=== PATIENT | female | born 1995 | race Caucasian/White ===

== ENCOUNTER 2017-03-17 18:14 | Emergency (ER) | payer OTHER ==
[~2017-03-17] VITALS: Ht 170.2 cm; Wt 59.1 kg
[2017-03-17 18:20] VITALS: BP 104/74; PULSE 81; RESP 18; O2SAT 99
--- NOTE | 2017-03-17 19:15 | ED.REPORT ---
HPI-GI Bleed Date of Service Mar 17, 2017 ED Provider: Tae Parks MD Pt is a 22 y/o female with a history of anxiety who presents to the ED c/o lower abdominal cramping onset two weeks ago. She thought the cramping was from menstruation, but denies getting her period. Pt describes her pain as waxing and waning, and rates the severity as 3/10 with the worst as 6/10. Additional symptoms include rectal bleeding, bloody stool, hematuria, melena x1, bowel urgency, and nasal congestion from a recent cold. She denies fever, cough, rash , SOB, chest pain, or any other symptoms. She reports getting treated for a stomach ulcer when she was 18, and thought she had another ulcer this year, but followed the diet they gave her before and it went away. Pt denies eating any unusual food recently. She took 50 mg of Zoloft for her anxiety 4 years ago, and would like to start prescription again. Prescription was filled in ED. Nursing Notes Stated Complaint: LOWER ABDOMINAL PAIN,RECTAL BLEEDING Chief Complaint: Female Abdominal Pain Nursing Notes Reviewed: Yes (Rabbit TV not reconciled) Allergies: Coded Allergies: Penicillins (Verified Allergy, Severe, 03/17/17) Sulfa (Sulfonamide Antibiotics) (Verified Allergy, Intermediate, 03/17/17) TAPE (Verified Allergy, Intermediate, 03/17/17) cefprozil (Verified Allergy, Intermediate, 03/17/17) codeine (Verified Allergy, Intermediate, 03/17/17) Scheduled Ciprofloxacin (Cipro) 500 Mg Tablet 500 MG PO BID Metronidazole (Metronidazole) 500 Mg Tablet 500 MG PO TID Sertraline HCl (Zoloft) 20 Mg/1 Ml Oral.conc 50 MG PO DAILY Scheduled PRN Hydrocodone-Acetaminophen 5-325 mg (Hydrocodone-Acetaminophen 5-325 mg) 1 Each Tablet 1-2 TABLET PO Q4H PRN PRN For Pain General Time Seen by Provider: 19:10 Chief Complaint Chief Complaint: Abdominal pain (cramping) Hx Obtained From: Patient Arrived By: Walk-in Onset Occurred: More than a week ago... (2 weeks) Symptom Duration: Waxes and wanes Location: : Diffuse Quality: Painful Severity: Current: Pain level 3 out of 10 Severity: Maximum: Pain level 6 out of 10 Recent Healthcare: No recent doctor visit, No recent hospitalization Similar Sx Previous: No Past Medical History Past Medical History Anxiety Stomach ulcer at 18 years old Past Surgical History Reports: Appendectomy Smoking History Unknown if Ever Smoker Social History Alcohol Use: "Social" Drug Use: Denies drug use Other Social History: Good social support Ambulatory Status Independent Review of Systems Rectal bleeding Bowel urgency Constitutional: Denies: Fever Ears / Nose / Throat: Reports: Nasal congestion (from recent cold) Respiratory: Denies: Non-productive cough, Prod cough, clear, Shortness of breath Cardiovascular: Denies: Chest pain GI: Reports: Abdominal pain (cramping ), Bloody/tarry stool, Melena (x1) Skin: Denies Rash Complete sys rev & neg: except as marked. Female: Reports: Hematuria Physical Exam Initial Vital Signs Vital Signs (First) Date Time Temp Pulse Resp B/P Pulse Ox O2 Delivery O2 Flow Rate FiO2 03/17/17 18:20 37.0 81 18 104/74 99 Room Air Initial VS: Reviewed, Vital signs normal Head / Eyes: Atraumatic, Normocephalic Neck: Supple, Full range of motion Extremities: Vascular intact, Neuro intact, No swelling, No tenderness Skin: Warm, Dry, No cyanosis Neurologic: Alert, Oriented, Nonfocal Psychiatric: Mood/affect normal, Behavior normal, Normal thought content General/Constitutional: Awake, Alert, Not toxic appearing Behavior: Positive: Anxious Not tachycardic Respiratory / Chest: Atraumatic, Breath sounds NL, Breath sounds = bilat, No respiratory distress Cardiovascular: Heart rate NL, Regular rhythm, Heart sounds NL Abdomen: Soft, Non-tender Rectal exam: Deferred Interpretation & Diagnostics Lab Results Interpretation Result Diagram: 03/17/17194003/17/171940 Test 03/17/17 19:24 03/17/17 19:41 Urine Color Yellow (YELLOW) Urine Appearance Hazy (CLEAR,HAZY) Urine pH 6.0 (5.0-8.0) Urine Specific [place] 1.025 (1.003-1.035) Urine Protein Negativemg/dL (NEG,TRACE) Urine Glucose (UA) Negativemg/dL (NEGATIVE) Urine Ketones Negativemg/dL (NEGATIVE) Urine Occult Blood Moderate (NEGATIVE) Urine Nitrite Negative (NEGATIVE) Urine Bilirubin Negative (NEGATIVE) Urine Urobilinogen 1.0mg/dL (NORMAL) Urine Leukocyte Esterase Negative (NEGATIVE) Urine RBC 3-10/hpf (0-2) Urine WBC 0-5/hpf (0-5) Urine Epithelial Cells Moderate/hpf (NONE-MOD) Urine Crystals None seen (NONE SEEN) Urine Bacteria Few/hpf (NONE-FEW) Urine Hyaline Casts None/lpf (NONE) Urine Granular Casts None seen (NONE SEEN) Urine Waxy Casts None seen (NONE SEEN) Urine Red Blood Cell Casts None seen (NONE SEEN) Urine White Blood Cell Casts None seen (NONE SEEN) Urine Mucus None seen (None Seen) Urine Trichomonas None seen (NONE SEEN) Urine Yeast None (NONE SEEN) Urinalysis Comment None Urine Culture Reflexed Not indicated White Blood Count 7.0th/mm3 (3.8-10.1) Red Blood Count 4.93mil/mm3 (3.90-5.20) Hemoglobin 15.4g/dL (12.0-15.6) Hematocrit 44.7% (35.0-46.0) Mean Corpuscular Volume 90.7fL (81-100) Mean Corpuscular Hemoglobin 31.2pg (27.0-35.0) Mean Corpuscular Hemoglobin Concent 34.5% (32.0-37.0) Red Cell Distribution Width 11.9% (12.3-15.4) Platelet Count 242bil/L (150-400) Neutrophils (%) (Auto) 59.4% (40-74) Lymphocytes (%) (Auto) 23.5% (14-46) Monocytes (%) (Auto) 13.9% (4-12) Eosinophils (%) (Auto) 2.7% (0-5) Basophils (%) (Auto) 0.4% (0-3) Prothrombin Time 11.1sec (8.1-12.5) Prothromb Time International Ratio 1.04ratio Sodium Level 139mEq/L (134-144) Potassium Level 3.8mEq/L (3.5-5.2) Chloride Level 103mEq/L (97-108) Carbon Dioxide Level 22mmol/L (18-29) Blood Urea Nitrogen 7mg/dL (6-20) Creatinine 0.59mg/dL (0.57-1.00) Estimat Glomerular Filtration Rate 184mL/min (>59) Glucose Level 91mg/dL (60-99) Calcium Level 9.0mg/dL (8.5-10.1) Total Bilirubin 0.4mg/dL (0.0-1.2) Aspartate Amino Transf (AST/SGOT) 16U/L (0-50) Alanine Aminotransferase (ALT/SGPT) 11U/L (0-32) Alkaline Phosphatase 72U/L (25-150) Total Protein 7.3g/dL (6.4-8.4) Albumin 4.4g/dL (3.4-5.0) Human Chorionic Gonadotropin, Qual Negative (Negative) Hold Esquivel Top Tube Received (Received) Lab Results Interpretation: CBC normal limits and CMP normal negative CT Abd / Pelvis Interpretation IMPRESSION: 1. Colitis of the rectosigmoid colon likely secondary to diverticulitis. No diverticular abscess or macroscopic free air. Dictated by: Ben Melo M.D. on 03/17/2017 at 21:11 Approved by: Ben Melo M.D. on 03/17/2017 at 21:18 Study type: Abdominal CT IV contrast, Abdom CT oral contrast Interpretation / Wet Read by: Interpret - Radiologist Re-Eval/Medical Decision Med Decision/Clinical Course This is a 22-year-old female presents with 2 weeks of cramping and left lower quadrant pain with intermittent rectal bleeding, with symptoms worsening today. She reports possible fever, but not definite. Denies marine dysuria. He has no prior history of similar symptoms. She is not aware of any family history of inflammatory bowel disease or prior similar process. She denies recent antibiotic exposure, travel history, suspicious food ingestions, and has not been to the [facility] with his recent enteroinvasive outbreak. The patient is in no distress, but is certainly anxious. Abdomen is without findings of an acute surgical abdomen but there is mild tenderness. There is no guarding or rebound. Blood work is normal, CT is read as positive for diverticulitis. The patient is started on Cipro and Flagyl, she is concerned about allergies-and reports she tolerates azithromycin, but is artery allergic to penicillin, sulfa, and cephalosporin so they are not very good alternatives. Plan is discharge on on a two-week course of an antibiotic. Given her young age , I recommended follow-up with gastroenterology provided referral information. She is received a small amount hydrocodone, and should like a refill of her Zoloft has been working at a PCP appointment but is not several more weeks-So I have gone ahead and written a refill of her 50 mg once a day dose. Routine and return precautions reviewed Source of Hx: Old records Re-Evaluation/Progress #1: Time of Eval: 20:08 Re-Evaluation/Progress Note: Pt rechecked. Asked pt if she has been to the [facility] b/c recent outbreak of e.coli in [facility] attendees. She denies attendance. Re-Evaluation/Progress #2: Time of Eval: 21:25 Re-Evaluation/Progress Note: Pt rechecked. Discussed CT results. Discussed plan for discharge. Patient understands and agrees with plan. F/U instructions and RTER warnings given. All questions addressed at this time. Differential Diagnosis: Positive: Rectal bleeding, Negative: Anal fissures, Angiodysplasia, Esophageal varices, Esophagitis, Foreign body intestine, Foreign body rectum, Gastroenteritis Counseled Regarding: Diagnosis, Lab results, Need for follow-up, When/why to return to ED Discharge & Departure Impression: Primary Impression: Diverticulitis Diverticulitis site: small and large intestine Diverticulitis bleeding: with bleeding Diverticulitis complication: without perforation or abscess Qualified Code: K57.53 - Diverticulitis of both small and large intestine without perforation or abscess with bleeding Disposition: Home Discharge Condition All VS Reviewed: Yes Condition: Stable Additional Instructions: 1. Your blood tests were normal, however your CT scan revealed her symptoms are from a condition called diverticulitis. This is an infection and inflammation of the part of the lower intestine. 2. Although, condition, your very young for this first episode-and as a result I do recommend he follow up with a ship keeper. There is no pollack - call Dr. Dia's office this week to schedule an appointment in a few weeks. 3. Take the antibiotics ciprofloxacin 500mg twice a day for 14 days AND metronidazole 500mg three times a day for 14 days (Do not drink any alcohol while taking this antibiotic or results in nausea) 4. Symptoms are expected to start to improve in a few days after beginning antibiotics. 5. Return if new or worsening symptoms. 6. If needed for severe cramping you can take hydrocodone/APAP 5/325 1-2 tabs up to every 6 hours. Note this is a medication it does contain a narcotic and causes some drowsiness. No driving for at least 4-6 hours after taking. Referrals: NOPCP (PCP) Lesa Olivares MD Scribe Attestation Portions of this note were transcribed by Angela Meneses. I, Dr. Parks, personally performed the history, physical exam and medical decision-making; I reviewed and confirmed the accuracy of the information in the transcribed note. copies to: Lesa Olivares MD, Matthew F MD Mar 17, 2017 19:15 Angela Meneses Mar 17, 2017 19:34
[2017-03-17] MEDS ORDERED: Iohexol 300 mg/mL 30 mL Inj PO ONE (19:35)
[2017-03-17] MEDS ORDERED: SERT20OR PO (19:41)
[2017-03-17 19:47] LABS: APPEARANCE,URINE HAZY (CLEAR,HAZY); COLOR,URINE YELLOW (YELLOW)
[2017-03-17 19:48] LABS: OCCULT BLOOD,URINE MODERATE (NEGATIVE)
[2017-03-17 20:00] LABS: BASOPHILS % (AUTO) 0.4 % (0-3); EOSINOPHILS % (AUTO) 2.7 % (0-5); MONOCYTES % (AUTO) 13.9 % (4-12); Mean Corpuscular Hemoglobin 31.2 pg (27.0-35.0); Mean Corpuscular Volume 90.7 fL (81-100); NEUTROPHILS % (AUTO) 59.4 % (40-74); Platelet Count 242 bil/L (150-400)
[2017-03-17 20:12] VITALS: BP 111/67; PULSE 73; O2SAT 100
[2017-03-17 20:13] VITALS: BP 116/61; PULSE 69; O2SAT 100
[2017-03-17 20:14] VITALS: BP 112/73; PULSE 77; O2SAT 100
[2017-03-17 20:17] LABS: INR 1.04 ratio
--- NOTE | 2017-03-17 21:19 | DRSVH ---
PROCEDURE: CT ABDOMEN AND PELVIS WITH CONTRAST ([id number]) INDICATIONS: Increasing abdominal pain for 2 weeks with bloody stools. TECHNIQUE: After the administration of oral and intravenous contrast, 5 mm thick sections acquired from the diap hragms to the symphysis. 5 mm thick coronal and sagittal reformats were performed. For radiation do se reduction, the following was used: automated exposure control, adjustment of mA and/or kV accordi ng to patient size. COMPARISON: None. FINDINGS: Image quality: Excellent. ABDOMEN: Lung bases: Lung bases are clear. Heart size is normal. Solid organs: Liver and spleen are normal in size and enhancement. Gallbladder appears within elli l limits without calcified gallstones. Biliary system is non-dilated. Pancreas enhances normally. No adrenal nodules. Kidneys are normal in size and enhancement, without hydronephrosis. Peritoneum and bowel: Stomach and small bowel loops are normal in caliber and wall thickness. The a ppendix is not discretely identified and is likely surgically absent. No pericecal inflammatory beyer ges to suggest appendicitis. Colonic diverticulosis is present. There is segmental wall thickening in the rectosigmoid colon with mucosal enhancement, pericolonic fat stranding, and a small amount of fluid. Findings are consistent with a mild colitis, likely related to diverticulitis. No discrete d iverticular abscess or macroscopic free air identified. Nodes and vessels: No retroperitoneal or mesenteric adenopathy. Aorta and inferior vena cava are no rmal in caliber. Miscellaneous: No ventral hernias. PELVIS: Genitourinary: There is wall thickening and fat stranding around the cervix likely secondary to infl ammatory changes in the colon. The uterus and ovaries appear within normal size limits. Bladder wal l thickness is normal. Miscellaneous: No inguinal hernias or adenopathy. Bones: No suspicious bony lesions. No vertebral body compression fractures. IMPRESSION: 1. Colitis of the rectosigmoid colon likely secondary to diverticulitis. No diverticular abscess or macroscopic free air. Dictated by: Ben Melo M.D. on 03/17/2017 at 21:11 Approved by: Ben Melo M.D. on 03/17/2017 at 21:18
[2017-03-17] MEDS ORDERED: metroNIDAZOLE Inj 500 MG in IV Premix 1 EACH IV ONE (21:25)
[2017-03-17] MEDS ORDERED: _HYDROcodone/APAP 5-325 mg Tablet PO PRN (21:35)
[2017-03-17] MEDS ORDERED: METR500T19 PO (21:37)
[2017-03-17] MEDS ORDERED: HYDR-4003 PO (21:37)
[2017-03-17] MEDS ORDERED: CIPR-231 PO (21:37)
[2017-03-17 22:19] VITALS: BP 114/62; PULSE 87; RESP 20; O2SAT 100
== END 2017-03-17 22:20 | disposition home or self-care (01) ==
LOC: SED 18:14
DX: K57.53 Diverticulitis of both small and large intestine without perforation or abscess with bleeding (principal); F41.9 Anxiety disorder, unspecified; Z88.0 Allergy status to penicillin; Z88.2 Allergy status to sulfonamides; Z88.5 Allergy status to narcotic agent; Z88.8 Allergy status to other drugs, medicaments and biological substances; Z91.048 Other nonmedicinal substance allergy status
CPT/HCPCS: 36415; 74177; 80053; 81000; 81025; 84703; 85025; 85610; 96365; 99285; J3490; Q9967

== ENCOUNTER 2017-03-21 22:12 | Emergency (ER) | payer OTHER ==
[~2017-03-21] VITALS: Ht 170.2 cm; Wt 59.0 kg
[~2017-03-21 22:12] MED LIST: CIPR-231 PO; HYDR-4003 PO; METR500T19 PO; SERT20OR PO
[2017-03-21 22:15] VITALS: BP 113/77; PULSE 79; RESP 18; O2SAT 99
--- NOTE | 2017-03-21 22:25 | ED.REPORT ---
HPI-General Illness Date of Service Mar 21, 2017 ED Provider: Rogelio Wooten MD A 22 year old female with a history of anxiety, appendectomy and recently diagnosed diverticulitis presents to the ED complaining of vomiting. The pt was seen in the ED on 03/17/2017 and diagnosed with diverticulitis. She was prescribed pain medication and antibiotics but has experienced increasing abdominal pain, nausea, vomiting and diarrhea since. She also reports hematochezia, but states that it is significantly less than when she was seen previously. The pt is concerned because she vomited one hour after taking her antibiotics today. She is currently on her menstrual period. Nursing Notes Stated Complaint: NAUSEA,DIZZINESS Chief Complaint: Female Abdominal Pain Nursing Notes Reviewed: Yes Allergies: Coded Allergies: Penicillins (Verified Allergy, Severe, 03/17/17) Sulfa (Sulfonamide Antibiotics) (Verified Allergy, Intermediate, 03/17/17) TAPE (Verified Allergy, Intermediate, 03/17/17) cefprozil (Verified Allergy, Intermediate, 03/17/17) codeine (Verified Allergy, Intermediate, 03/17/17) Scheduled Ciprofloxacin (Cipro) 500 Mg Tablet 500 MG PO BID Famotidine (Pepcid) 20 Mg Tablet 20 MG PO BID Metronidazole (Metronidazole) 500 Mg Tablet 500 MG PO TID Sertraline HCl (Zoloft) 20 Mg/1 Ml Oral.conc 50 MG PO DAILY Sertraline HCl (Sertraline) 50 Mg Tablet 50 MG PO DAILY Scheduled PRN Hydrocodone-Acetaminophen 5-325 mg (Hydrocodone-Acetaminophen 5-325 mg) 1 Each Tablet 1-2 TABLET PO Q4H PRN PRN For Pain Ibuprofen (Ibuprofen) 400 Mg Tablet 400 MG PO QID PRN PRN For Pain Ondansetron ODT (Ondansetron ODT) 8 Mg Tab.rapdis 8 MG PO QID PRN PRN For Nausea General Time Seen by : 22:24 Chief Complaint Vomiting Hx Obtained From: Patient Arrived By: Walk-in Sudden in Onset?: No Onset Occurred: 4 days ago Symptom Duration: Since onset Recent Healthcare: Recent doctor visit Similar Sx Previous: Yes Past Medical History Past Medical History Anxiety Stomach ulcer at 18 years old Diverticulitis Past Surgical History Reports: Appendectomy Smoking History Unknown if Ever Smoker Social History Alcohol Use: "Social" Drug Use: Denies drug use Other Social History: Good social support Ambulatory Status Independent Review of Systems Full Review of Systems Respiratory: Denies: Non-productive cough, Shortness of breath Cardiovascular: Denies: Chest pain GI: Reports: Abdominal pain, Diarrhea, Hematochezia, Nausea, Vomiting Musculoskeletal: Denies: Back pain, Neck pain Skin: Denies Rash Complete sys rev & neg: except as marked. Physical Exam Vital Signs Vital Signs Date Time Temp Pulse Resp B/P Pulse Ox O2 Delivery O2 Flow Rate FiO2 03/22/17 00:37 60 18 100/66 100 03/21/17 22:15 36.7 79 18 113/77 99 Room Air Initial VS: Reviewed General/Constitutional: Awake, Alert anicteric Head / Eyes: Atraumatic, Normocephalic, PERRL, EOMI ENT: Atraumatic, Airway patent Mouth: Positive: Mucous membranes dry Neck: Atraumatic, Supple, Full range of motion Respiratory / Chest: Atraumatic, Breath sounds NL, Breath sounds = bilat, No respiratory distress Cardiovascular: Heart rate NL, Regular rhythm, Heart sounds NL Abdomen: Atraumatic, Soft minimal tenderness Back: Atraumatic, Full range of motion Upper Extremities Upper Extremity / MS: Atraumatic, Full range of motion Lower Extremity / Pelvis / MS: Atraumatic, Full range of motion Skin: Atraumatic, Color NL, No rash, Warm, Dry Neurologic: Oriented X3, Speech NL, No motor deficits, No sensory deficits Psychiatric: Affect NL, Mood NL Interpretation & Diagnostics Lab Results Interpretation Result Diagram: 03/21/17 2250 03/21/17 2329 Test 03/21/17 22:50 03/21/17 23:29 White Blood Count 8.0th/mm3 (3.8-10.1) Red Blood Count 5.45mil/mm3 (3.90-5.20) Hemoglobin 16.8g/dL (12.0-15.6) Hematocrit 49.1% (35.0-46.0) Mean Corpuscular Volume 90.1fL (81-100) Mean Corpuscular Hemoglobin 30.8pg (27.0-35.0) Mean Corpuscular Hemoglobin Concent 34.2% (32.0-37.0) Red Cell Distribution Width 11.8% (12.3-15.4) Platelet Count 315bil/L (150-400) Neutrophils (%) (Auto) 72.5% (40-74) Lymphocytes (%) (Auto) 18.1% (14-46) Monocytes (%) (Auto) 7.9% (4-12) Eosinophils (%) (Auto) 0.5% (0-5) Basophils (%) (Auto) 0.6% (0-3) Urine Color [place] (YELLOW) Urine Appearance Hazy (CLEAR,HAZY) Urine pH 6.0 (5.0-8.0) Urine Specific [place] 1.035 (1.003-1.035) Urine Protein Tracemg/dL (NEG,TRACE) Urine Glucose (UA) Negativemg/dL (NEGATIVE) Urine Ketones >80mg/dL (NEGATIVE) Urine Occult Blood Trace (NEGATIVE) Urine Nitrite Positive (NEGATIVE) Urine Bilirubin Negative (NEGATIVE) Urine Ictotest Negative (Negative) Urine Urobilinogen 1.0mg/dL (NORMAL) Urine Leukocyte Esterase Trace (NEGATIVE) Urine RBC 0-2/hpf (0-2) Urine WBC 6-10/hpf (0-5) Urine Epithelial Cells Moderate/hpf (NONE-MOD) Urine Crystals None seen (NONE SEEN) Urine Bacteria Few/hpf (NONE-FEW) Urine Hyaline Casts None/lpf (NONE) Urine Granular Casts None seen (NONE SEEN) Urine Waxy Casts None seen (NONE SEEN) Urine Red Blood Cell Casts None seen (NONE SEEN) Urine White Blood Cell Casts None seen (NONE SEEN) Urine Mucus Present (None Seen) Urine Trichomonas None seen (NONE SEEN) Urine Yeast Few (NONE SEEN) Urinalysis Comment None Urine Culture Reflexed Indicated Sodium Level 143mEq/L (134-144) Potassium Level 3.9mEq/L (3.5-5.2) Chloride Level 105mEq/L (97-108) Carbon Dioxide Level 22mmol/L (18-29) Blood Urea Nitrogen 10mg/dL (6-20) Creatinine 0.65mg/dL (0.57-1.00) Estimat Glomerular Filtration Rate 165mL/min (>59) Glucose Level 91mg/dL (60-99) Calcium Level 8.5mg/dL (8.5-10.1) Magnesium Level 1.9mg/dL (1.6-2.6) Total Bilirubin 0.4mg/dL (0.0-1.2) Aspartate Amino Transf (AST/SGOT) 17U/L (0-50) Alanine Aminotransferase (ALT/SGPT) 13U/L (0-32) Alkaline Phosphatase 53U/L (25-150) Total Protein 6.6g/dL (6.4-8.4) Albumin 4.2g/dL (3.4-5.0) Lipase 17U/L (13-60) Re-Eval/Medical Decision Med Decision/Clinical Course 22-year-old female presents with continuing nausea and some abdominal pain. She was diagnosed by CAT scan with possible diverticulitis, though she is extremely young for that diagnosis. Possibility of simple colitis remains at least as likely. She is continuing with her antibiotics, is improved here after hydration, and is discharged home with Zofran, and plans for follow-up with GI. Discharge now in stable and improved condition. Source of Hx: Old records Time of Eval: 00:16 Patient Status: Condition improved Re-Evaluation/Progress Note: Pt rechecked, who is feeling significantly better. The diagnosis and plan for discharge are discussed. The pt understands and agrees with the plan. All questions are addressed at this time. Counseled Regarding: Diagnosis, Lab results, Need for follow-up, When/why to return to ED Discharge & Departure Primary Impression: Dehydration Additional Impressions: Vomiting Vomiting type: unspecified Vomiting Intractability: non-intractable Nausea presence: with nausea Qualified Code: R11.2 - Nausea with vomiting, unspecified Colitis Disposition: Home Discharge Condition All VS Reviewed: Yes Condition: Stable Patient Instructions: Acute Nausea and Vomiting (ED), Colitis (ED) Additional Instructions: Finish your antibiotics as directed. Zofran up to four times daily if needed for nausea. Clear fluids and maintain hydration. Pedialyte or Gatorade or Powerade would all be good choices. Continue a light liquid diet and advance slowly as tolerated. Follow-up with gastroenterology as scheduled. Return if any immediate issues in the meantime. Follow-up with your doctor also. Motrin four times daily as needed for pain. Pepcid twice daily as long as you are taking Motrin. Referrals: Sajan Cheng Attestation Portions of this note were transcribed by Keon Bettencourt. I, Dr. Wooten personally performed the history, physical exam and medical decision-making; I reviewed and confirmed the accuracy of the information in the transcribed note. copies to: Sajan Cheng Christopher W MD Mar 21, 2017 22:24 KEON BETTENCOURT Mar 21, 2017 22:58
[2017-03-21] MEDS ORDERED: Ondansetron 2 mg/mL 2 mL Inj IVPUSH ONE (22:40)
[2017-03-21] MEDS ORDERED: 0.9% Sodium Chloride 1,000 ML IV ONE ×2 (22:40→22:45)
[2017-03-21] MEDS ORDERED: _Ondansetron ODT 4 mg Tablet PO PRN (22:45)
[2017-03-21 22:54] LABS: Mean Corpuscular Hemoglobin 30.8 pg (27.0-35.0); Mean Corpuscular Volume 90.1 fL (81-100); NEUTROPHILS % (AUTO) 72.5 % (40-74); Platelet Count 315 bil/L (150-400)
[2017-03-21 22:55] LABS: BASOPHILS % (AUTO) 0.6 % (0-3); EOSINOPHILS % (AUTO) 0.5 % (0-5); MONOCYTES % (AUTO) 7.9 % (4-12)
[2017-03-21 23:06] LABS: APPEARANCE,URINE HAZY (CLEAR,HAZY); COLOR,URINE AMBER (YELLOW); OCCULT BLOOD,URINE TRACE (NEGATIVE)
[2017-03-21 23:07] LABS: ICTOTEST,URINE NEGATIVE (Negative); YEAST,URINE FEW (NONE SEEN)
[2017-03-22 00:08] LABS: Magnesium 1.9 mg/dL (1.6-2.6)
[2017-03-22] MEDS ORDERED: FAMO20T PO (00:24)
[2017-03-22] MEDS ORDERED: ONDA8TAB10 PO (00:24)
[2017-03-22] MEDS ORDERED: IBUP400T22 PO (00:24)
[2017-03-22] MEDS ORDERED: SERT50TA9 PO (00:25)
[2017-03-22 00:37] VITALS: BP 100/66; PULSE 60; RESP 18; O2SAT 100
== END 2017-03-22 00:38 | disposition home or self-care (01) ==
LOC: SED 22:12
DX: E86.0 Dehydration (principal); K52.9 Noninfective gastroenteritis and colitis, unspecified; F41.9 Anxiety disorder, unspecified; Z87.19 Personal history of other diseases of the digestive system; Z90.89 Acquired absence of other organs; Z88.2 Allergy status to sulfonamides; Z88.5 Allergy status to narcotic agent; Z88.0 Allergy status to penicillin; Z88.1 Allergy status to other antibiotic agents
CPT/HCPCS: 36415; 80053; 81000; 81025; 83690; 83735; 85025; 87086; 96361; 96374; 99285; J2405; J7030